=== PATIENT | female | born 1970 | race Caucasian/White ===

== ENCOUNTER 2020-09-12 19:08 | Inpatient (IN) | payer OTHER, SELFPAY ==
[~2020-09-12] VITALS: Ht 167.6 cm; Wt 72.6 kg
[2020-09-12] MEDS: NACL 0.9% 1,000 ML IV SCH (01:00)
[2020-09-12 19:22] VITALS: BP 143/78
--- NOTE | 2020-09-12 19:30 | NUR ---
biba to bed 11.
--- NOTE | 2020-09-12 19:58 | NUR ---
Dr. Bear made aware of pt changes in mentation.
--- NOTE | 2020-09-12 20:00 | NUR ---
received pt from EMS and placed to bed 11. pt connected to cardiac monitoring and pulse ox. placed for comfort in high fowlers position. a/o x 3, gcs 14. pt is a 50 year old female with hx of cerebellar ataxia, DM , HTN coming in for anxiety attack that happened 1819. upon assessment of pt, observed right facial droop and right side neglect. BUE rough rounder machine symmetrical 5/5. BLE no effort against gravity. presents garbled speech. BL limb ataxia. LKW 1819. per daughter, stated that pt usually has slight droop due to cerebella ataxia. daughter states that pt was eating a sandwich acting normally when all of a sudden she suddenly started panicking and slurring her speech.
--- NOTE | 2020-09-12 20:12 | NUR ---
code stroke called
--- NOTE | 2020-09-12 20:20 | NUR ---
NIH of 18 with fail dysphagia screen
[2020-09-12 20:27] LABS: BASOPHILS # (AUTO) 0.1 K/uL (0.00-0.22); BASOPHILS % (AUTO) 0.6 % (0.0-2.0); EOSINOPHILS # (AUTO) 0.3 K/uL (0-0.4); EOSINOPHILS % (AUTO) 2.4 % (0.0-4.0); HEMATOCRIT 40.4 % (36-48); HEMOGLOBIN 13.4 g/dL (12.0-16.0); LYMPHOCYTES # (AUTO) 2.9 K/uL (2.5-16.5); LYMPHOCYTES % (AUTO) 21.6 % (20.5-51.1); MEAN CORPUSCULAR HEMOGLOBIN 30 pg (27-31); MEAN CORPUSCULAR HGB CONC 33 g/dL (33-37); MEAN CORPUSCULAR VOLUME 90.1 fL (80-94); MONOCYTES # (AUTO) 0.9 K/uL (0.8-1.0); MONOCYTES % (AUTO) 6.3 % (1.7-9.3); NEUTROPHILS # (AUTO) 9.4 K/uL (1.8-7.7); NEUTROPHILS % (AUTO) 69.1 % (42.2-75.2); PLATELET COUNT (AUTO) 177 K/uL (140-450); RED BLOOD CELL COUNT(AUTO) 4.48 MIL/uL (4.20-5.40); RED CELL DISTRIBUTION WIDTH 12.6 % (11.6-13.7); WHITE BLOOD COUNT (AUTO) 13.6 K/uL (4.8-10.8)
[2020-09-12 20:35] LABS: PROTHROMBIN TIME 9.4 secs (10.8-13.4)
[2020-09-12 20:37] LABS: CARBON DIOXIDE 29.2 mmol/L (21-32); CREATININE 0.9 mg/dL (0.6-1.3); POTASSIUM 4.2 mmol/L (3.5-5.1); TOTAL BILIRUBIN 0.8 mg/dL (0.0-1.0)
--- NOTE | 2020-09-12 20:42 | NUR ---
Karishma medley in ED - 09/12/20 at 2055 by [facility] of 20 with fail dysphagia screen.
--- NOTE | 2020-09-12 20:50 | NUR ---
telepsych currently assessing pt from remote location.
[2020-09-12 21:18] LABS: ACETAMINOPHEN < 0.5 ug/ml (10-30); SALICYLATE < 2.8 mg/dL (2.8-20.0)
[2020-09-12 21:47] LABS: APPEARANCE,URINE CLEAR (CLEAR); BILIRUBIN,URINE NEGATIVE (NEGATIVE); BLOOD, URINE NEGATIVE (NEGATIVE); COLOR,URINE YELLOW (YELLOW); LEUKOCYTE ESTERASE ,URINE TRACE (NEGATIVE); NITRITE, URINE NEGATIVE (NEGATIVE); PH,URINE 5.5 (5.0-9.0); UGLUCOSE 1+ (NEGATIVE)
--- NOTE | 2020-09-12 22:02 | NUR ---
covid swab collected and sent to lab.
[2020-09-12 22:04] LABS: BARBITURATE, URINE NEGATIVE ng/ml (NEG <=200); BENZODIAZEPINE, URINE NEGATIVE ng/mL (NEG <=200); CANNABINOID, URINE POSITIVE ng/mL (NEG <=50); COCAINE, URINE NEGATIVE ng/mL (NEG <=300); OPIATE, URINE NEGATIVE ng/mL (NEG <=2000); PHENCYCLIDINE SCREEN,URINE NEGATIVE ng/mL (NEG <=25)
[2020-09-12 22:11] LABS: HYALINE CASTS, URINE 0-2 /LPF (None Seen); RBC,URINE 0-5 /HPF (0-5); WBC,URINE 0-5 /HPF (0-5)
[2020-09-12] MEDS ORDERED: ESCI5TAB PO (22:16)
[2020-09-12] MEDS ORDERED: IBUP-2213 PO (22:16)
[2020-09-12] MEDS ORDERED: AMLO2.5T PO (22:16)
[2020-09-12] MEDS ORDERED: FURO-572 PO (22:16)
[2020-09-12] MEDS ORDERED: METO25TE71 PO (22:16)
[2020-09-12] MEDS ORDERED: METF750T PO (22:16)
[2020-09-12] MEDS ORDERED: POTA10TE30 PO (22:16)
[2020-09-12] MEDS ORDERED: LISI5TAB18 PO (22:16)
[2020-09-12] MEDS ORDERED: DOCUSATE SODIUM 100 MG GELCAP PO PRN (22:25)
[2020-09-12] MEDS ORDERED: HYDROcodone/APAP 5/325 MG 1 TAB TAB PO PRN (22:25)
[2020-09-12] MEDS ORDERED: POTASSIUM CHLORIDE 40 MEQ, LIDOCAINE MPF 1% 25 MG in NACL 0.9% 250 ML IV PRN (22:25)
[2020-09-12] MEDS ORDERED: ONDANSETRON 4 MG/2 ML VIAL IM/IVP PRN (22:25)
[2020-09-12] MEDS ORDERED: MORPHINE SULFATE 2 MG/ML SYR IVP PRN (22:25)
[2020-09-12] MEDS ORDERED: SODIUM PHOS / POTASSIUM PHOS 1 PKT PDR PO PRN (22:25)
[2020-09-12] MEDS ORDERED: MAG SULF 2000 MG/WATER PREMIX 50 ML IV PRN (22:25)
[2020-09-12] MEDS ORDERED: ACETAMINOPHEN 325 MG TAB PO PRN (22:25)
[2020-09-12] MEDS ORDERED: DEXTROSE 50% 50 ML SYR IVP PRN (22:35)
--- NOTE | 2020-09-12 23:00 | NUR ---
transfer of care report given to Rasheeda CLAIRE from [facility]. pt will be admitted under the care of Dr. Randall. currently a/o x 2-3 gcs 14. placed in gown. IV site patent and flushable. belonging and meds are going to be sent with pt.
[2020-09-12 23:03] LABS: MAGNESIUM 1.6 mg/dL (1.8-2.4); PHOSPHORUS 5.3 mg/dL (2.5-4.9); THYROID STIMULATING HORMONE 1.13 uIU/mL (0.34-3.74)
--- NOTE | 2020-09-12 23:45 | NUR ---
ADMITTED A FEMALE PT FROM HOME ACCOMPANIED BY DAUGHTER WITH CC: ANXIETY, RIGHT FACIAL DROOP, SLURRED SPEECH. DX: ACUTE ENCEPHALOPATHY. HX: CEREBELLAR ATAXIA, HTN, DM. NKA, FULL CODE. AOX4 NO DISTRESS, RESPIRATION REGULAR NON LABORED. BOWEL SOUNDS PRESENT IN ALL 4 QUADRANT. MRSA SCREENING DONE. DENIES PAIN . WILL CONTINUE TO MONITOR.
[2020-09-13] MEDS: PANTOPRAZOLE 40 MG INJ VIAL IVP SCH ×2 (01:05→08:51)
[2020-09-13] MEDS ORDERED: cefTRIAXone 1,000 MG VIAL ONE (01:18)
[2020-09-13 04:00] VITALS: BP 104/63
--- NOTE | 2020-09-13 06:03 | NUR ---
PATIENT C/O URINARY HESITANCY AND URGENCY. UNABLE TO URINATE IN BEDPAN. STRAIGHT CATHETER ADMINISTERED WITH 850 ML OF CLEAR, YELLOW URINE OUT. PATIENT VERBALIZED RELIEF AND TOLERATED WELL.
[2020-09-13 06:09] LABS: CREATININE 0.8 mg/dL (0.6-1.3)
[2020-09-13 06:52] LABS: BASOPHILS % (AUTO) 0.4 % (0.0-2.0); EOSINOPHILS # (AUTO) 0.1 K/uL (0-0.4); EOSINOPHILS % (AUTO) 1.2 % (0.0-4.0); HEMATOCRIT 32.5 % (36-48); HEMOGLOBIN 11.2 g/dL (12.0-16.0); LYMPHOCYTES # (AUTO) 2.3 K/uL (2.5-16.5); LYMPHOCYTES % (AUTO) 22.7 % (20.5-51.1); MEAN CORPUSCULAR HEMOGLOBIN 31 pg (27-31); MEAN CORPUSCULAR HGB CONC 35 g/dL (33-37); MONOCYTES # (AUTO) 0.7 K/uL (0.8-1.0); MONOCYTES % (AUTO) 6.3 % (1.7-9.3); NEUTROPHILS # (AUTO) 7.2 K/uL (1.8-7.7); NEUTROPHILS % (AUTO) 69.4 % (42.2-75.2); PLATELET COUNT (AUTO) 150 K/uL (140-450); RED BLOOD CELL COUNT(AUTO) 3.65 MIL/uL (4.20-5.40); RED CELL DISTRIBUTION WIDTH 12.6 % (11.6-13.7); WHITE BLOOD COUNT (AUTO) 10.3 K/uL (4.8-10.8)
[2020-09-13] MEDS: INSULIN LISPRO SLIDING SCALE 100 UNITS/ML VIAL SUBQ PRN ×3 (06:58→20:11)
[2020-09-13] MEDS: BLOOD GLUCOSE MONITORING 1 DEV DEV FS SCH ×4 (07:02→20:10)
--- NOTE | 2020-09-13 07:30 | NUR ---
ENDORSED TO THE MORNING SHIFT RN FOR CONTINUITY OF CARE IN STABLE CONDITION.
--- NOTE | 2020-09-13 07:35 | NUR ---
RECEIVED PT FROM SENIOR TELECOMMUNICATIONS TECHNICIAN NURSEAVA, PT IS AWAKE AND LYING ON THE BED WITH SIDE RAILS UP AND CALL LIGHT WITHIN REACH, IV LINE NOTED ON THE RFA G. 20 WITH IVF NS INFUSING AT 60ML/HR, INTACT, PT IS ON RA AND NO SIGN OF DISTRESS NOTED, PT DENIES PAIN BUT SPEECH IS SLURRED, NO FACIAL DROOP NOTED. WILL MONITOR PT.
--- NOTE | 2020-09-13 07:50 | NUR ---
PATIENT HAS BEEN SCREENED AND CATEGORIZED LOW NUTRITION RISK. PATIENT WILL BE SEEN WITHIN 7 DAYS OF ADMISSION. 09/18/[address]
[2020-09-13 08:00] VITALS: BP 126/80
[2020-09-13] MEDS: ESCITALOPRAM 20 MG TAB PO SCH (08:51)
[2020-09-13] MEDS: lisinopriL 5 MG TAB PO SCH (08:55)
[2020-09-13] MEDS: amLODIPine 5 MG TAB PO SCH (08:55)
[2020-09-13] MEDS: METOPROLOL SUCCINATE 50 MG TABER PO SCH (08:56)
--- NOTE | 2020-09-13 08:56 | NUR ---
PT WAS GIVEN THE SCHEDULED AM MEDICATION NOW, AMLODIPINE WAS HELD PER MD ORDER, MEDICATIONS WAS OPENED ALREADY AND WASTED, BP IS126/80, PULSE IS 98 MANUALLY
--- NOTE | 2020-09-13 11:36 | NUR ---
BLOOD GLUCOSE CHECK DONE AND IS 131, WILL MONITOR PT.
[2020-09-13 12:00] VITALS: BP 113/65
--- NOTE | 2020-09-13 14:28 | NUR ---
CALLED DR. RIDDLE AND REPORTED ABOUT THE VOIDING OF THE PT AND THE STRAIGHT CATHETERIZATION DONE TO PT AT 0936H AND EMPTIED 900ML IN THE BLADDER, AND AT ABOUT 1340 PT WAS ABLE TO VOID A 200ML AMOUNT OF PEE ON THE BEDPAN, DR. RIDDLE MADE A TELEPHONE ORDER TO INSERT COOLEY CATHETER TO THE PT
[2020-09-13 16:00] VITALS: BP 105/54
[2020-09-13] MEDS: NACL 0.9% 1,000 ML IV SCH (16:31)
--- NOTE | 2020-09-13 16:31 | NUR ---
PT'S BLOOD GLUCOSE WAS CHECKED AND IS 190 AND WILL GIVE INSULIN COVERAGE.
--- NOTE | 2020-09-13 16:53 | NUR ---
PT WAS GIVEN INSULIN 2 UNITS ON THE RIGHT DELTOID FOR BLOOD GLUCOSE OF 190.
--- NOTE | 2020-09-13 18:55 | NUR ---
SWALLOW EVALUATION IS BEING DONE TO PT NOW.
--- NOTE | 2020-09-13 19:06 | NUR ---
pt was seen for dysphagia. pt was able to safely swallow regular deit with thin liquid without s/s of aspiration. recommendation regular diet with thin liquid.
--- NOTE | 2020-09-13 19:10 | NUR ---
RECEIVED PATIENT FROM AM SHIFT NURSE FOR CONTINUITY OF CARE. ALERT AND ABLE TO MAKE NEEDS KNOWN. RESPIRATIONS EVEN, UNLABORED. NO S/S RESPIRATORY DISTRESS. S1/S2 AUSCULTATED. TELE MONITORING. SKIN WARM, DRY. IV SITE TO LEFT FOREARM 22G PATENT/INTACT, INFUSING FLUIDS WELL. NO C/O PAIN. NO S/S ACUTE DISTRESS. ABDOMEN SOFT, NONTENDER, NONDISTENDED. BOWEL SOUNDS ACTIVE X4 QUADRANTS. COOLEY CATHETER PATENT WITH CLEAR YELLOW URINE DRAINING TO GRAVITY. PLAN OF CARE DISCUSSED. CALL LIGHT WITHIN REACH AT ALL TIMES. SAFETY PRECAUTIONS IN PLACE.
--- NOTE | 2020-09-13 19:10 | NUR ---
ENDORSED PT TO TRUCK HEADLIGHT ASSEMBLER NURSE FOR CONTINUITY OF CARE.
[2020-09-13 20:00] VITALS: BP 112/79
--- NOTE | 2020-09-13 21:00 | NUR ---
DUE MEDS GIVEN. PATIENT RESTING COMFORTABLY IN BED. NO S/S RESPIRATORY DISTRESS. NO C/O PAIN. NO S/S ACUTE DISTRESS. CALL LIGHT WITHIN REACH AT ALL TIMES. SAFETY PRECAUTIONS IN PLACE.
--- NOTE | 2020-09-13 23:03 | NUR ---
PATIENT IS ASLEEP. NO S/S RESPIRATORY DISTRESS. NO S/S ACUTE DISTRESS. CALL LIGHT WITHIN REACH AT ALL TIMES. SAFETY PRECAUTIONS IN PLACE.
[2020-09-14] VITALS: BP 108/71
--- NOTE | 2020-09-14 01:00 | NUR ---
ASSISTED PATIENT TO TURN AND REPOSITION SELF IN BED. NO S/S RESPIRATORY DISTRESS. NO C/O PAIN. NO S/S ACUTE DISTRESS. CALL LIGHT WITHIN REACH. SAFETY PRECAUTIONS IN PLACE.
--- NOTE | 2020-09-14 03:29 | NUR ---
INCONTINENT CARE RENDERED. NO S/S RESPIRATORY DISTRESS. NO C/O PAIN. NO S/S ACUTE DISTRESS. CALL LIGHT WITHIN REACH. SAFETY PRECAUTIONS IN PLACE.
[2020-09-14 04:00] VITALS: BP 106/82
--- NOTE | 2020-09-14 04:29 | NUR ---
MADE ROUNDS. PATIENT IS ASLEEP. NO S/S RESPIRATORY DISTRESS. NO S/S ACUTE DISTRESS. CALL LIGHT WITHIN REACH. SAFETY PRECAUTIONS IN PLACE.
--- NOTE | 2020-09-14 05:01 | NUR ---
PATIENT ASLEEP. NO S/S RESPIRATORY DISTRESS. NO S/S ACUTE DISTRESS. CALL LIGHT WITHIN REACH. SAFETY PRECAUTIONS IN PLACE.
[2020-09-14 05:11] LABS: BASOPHILS % (AUTO) 0.3 % (0.0-2.0); EOSINOPHILS # (AUTO) 0.2 K/uL (0-0.4); EOSINOPHILS % (AUTO) 2.7 % (0.0-4.0); HEMOGLOBIN 12.4 g/dL (12.0-16.0); LYMPHOCYTES # (AUTO) 2.3 K/uL (2.5-16.5); LYMPHOCYTES % (AUTO) 30.1 % (20.5-51.1); MEAN CORPUSCULAR HEMOGLOBIN 31 pg (27-31); MEAN CORPUSCULAR HGB CONC 34 g/dL (33-37); MEAN CORPUSCULAR VOLUME 91.4 fL (80-94); MONOCYTES # (AUTO) 0.5 K/uL (0.8-1.0); NEUTROPHILS # (AUTO) 4.6 K/uL (1.8-7.7); NEUTROPHILS % (AUTO) 59.9 % (42.2-75.2); PLATELET COUNT (AUTO) 160 K/uL (140-450); RED BLOOD CELL COUNT(AUTO) 4.05 MIL/uL (4.20-5.40); RED CELL DISTRIBUTION WIDTH 12.8 % (11.6-13.7); WHITE BLOOD COUNT (AUTO) 7.7 K/uL (4.8-10.8)
[2020-09-14 05:46] LABS: ANION GAP 11.4 (8-16); CARBON DIOXIDE 26.5 mmol/L (21-32); CREATININE 0.6 mg/dL (0.6-1.3); POTASSIUM 3.9 mmol/L (3.5-5.1)
[2020-09-14 05:48] LABS: PHOSPHORUS 3.9 mg/dL (2.5-4.9)
[2020-09-14] MEDS: BLOOD GLUCOSE MONITORING 1 DEV DEV FS SCH ×4 (06:42→20:25)
[2020-09-14] MEDS: NACL 0.9% 1,000 ML IV SCH (06:54)
--- NOTE | 2020-09-14 07:30 | NUR ---
RECEIVED PT FROM CAMPUS SECURITY OFFICER NURSEAVA, PT IS AWAKE AND LYING ON THE BED WITH SIDE RAILS UP AND CALL LIGHT WITHIN REACH, IV LINE NOTED ON THE FR 22G WITH IVF NS INFUSING AT 60ML/HR, INTACT, PT IS ON RA AND NO SIGN OF DISTRESS NOTED, PT DENIES PAIN BUT SPEECH IS SLURRED, NO FACIAL DROOP NOTED. WILL MONITOR PT.
[2020-09-14 08:00] VITALS: BP 156/82
[2020-09-14] MEDS: METOPROLOL SUCCINATE 50 MG TABER PO SCH (09:40)
[2020-09-14] MEDS: lisinopriL 5 MG TAB PO SCH (09:41)
[2020-09-14] MEDS: ESCITALOPRAM 20 MG TAB PO SCH (09:42)
[2020-09-14] MEDS: amLODIPine 5 MG TAB PO SCH (09:43)
[2020-09-14] MEDS: PANTOPRAZOLE 40 MG INJ VIAL IVP SCH (09:44)
--- NOTE | 2020-09-14 09:45 | NUR ---
PT WA GIVEN THE SCHEDULED AM MEDIATIONS NOW, PARAMETERS CHECKED, BP IS 147/69, PULSE IS 97, TOLERATED, ASPIRATION PRECAUTION ENSURED. WILL CONTINUE TO MONITOR PT.
[2020-09-14] MEDS: INSULIN LISPRO SLIDING SCALE 100 UNITS/ML VIAL SUBQ PRN ×3 (11:25→20:28)
[2020-09-14 12:00] VITALS: BP 121/75
--- NOTE | 2020-09-14 12:24 | NUR ---
DR. RIDDLE MADE A TELEPHONE ORDER TO REMOVE COOLEY CATHETER AT AROUND 1500 AND ASSESS PT IF SHE CAN VOID FREELY BY HERSELF.
[2020-09-14 16:00] VITALS: BP 139/80
--- NOTE | 2020-09-14 16:26 | NUR ---
INSULIN 2 UNITS ADMINISTERED FOR BLOOD GLUCOSE 159.PATIENT DENIED PAIN AT THIS TIME . BED IN LOWER POSITION . CALL LIGHT WITHIN REACH.
--- NOTE | 2020-09-14 16:30 | NUR ---
COOLEY CATHETER D/C PER MD ORDERED COLLECTED 500 ML CLEAR URINE. PATIENT TOLERATED WELL.
--- NOTE | 2020-09-14 19:08 | NUR ---
ENDORSED PT TO PROCESS HELPER NURSE YANDEL FOR CONTINUITY OF CARE, PT TALKING TO FAMILY MEMBERS ON HER CP BUT FAMILY IS OUTSIDE THE WINDOW.
--- NOTE | 2020-09-14 19:09 | NUR ---
RECD. RESTING IN BED, AWAKE, A/OX4. RESPIRATION EVEN AND UNLABORED. IV OF NS AT 60 ML/HR INFUSING RIGHT FOREARM G22. SAFETY MEASURES ENFORCED. BED IN THE LOWEST POSITION, SIDE RAILS UP, CALL LIGHT NEAR. MEDICATIONS AND CARE FOR THE SHIFT DISCUSSED WITH PATIENT, VERBALIZED UNDERSTANDING. DENIES PAIN 0/10.
[2020-09-14 20:00] VITALS: BP 142/80
--- NOTE | 2020-09-14 20:00 | NUR ---
Patient's Plan of Care was discussed and reviewed with CLAY PIGEON SETTER: YANDEL APEZ
--- NOTE | 2020-09-14 20:25 | NUR ---
WATCHING TV. BS CHECKED - 213. HUMALOG GIVEN SUB-Q PER SLIDING SCALE COVERAGE. SNACK GIVEN FOR THE NIGHT.
--- NOTE | 2020-09-14 20:30 | NUR ---
ENCOURAGED TO DRINK MORE FLUIDS, WATER AND JUICES AT THE BEDSIDE TABLE. INSTRUCTED TO CALL NURSE FOR ASSISTANCE WHEN SHE WANTS TO VOID. VERBALIZED UNDERSTANDING.
--- NOTE | 2020-09-14 21:40 | NUR ---
ADMINISTERED SCHEDULED MEDICATION. EDUCATION PROVIDED. NO DISTRESS NOTED. CALL LIGHT WITHIN REACH. WILL CONTINUE TO MONITOR
--- NOTE | 2020-09-14 23:00 | NUR ---
SLEEPING COMFORTABLY IN BED.
[2020-09-15] VITALS: BP 106/76
[2020-09-15] MEDS: NACL 0.9% 1,000 ML IV SCH ×3 (00:25→19:10)
--- NOTE | 2020-09-15 01:15 | NUR ---
ASSISTED TO GET OUT OF BED TO VOID IN THE BR. AMBULATED USING HER WALKER. VOIDED MODERATE AMOUNT OF CLEAR YELLOW URINE.
[2020-09-15 04:00] VITALS: BP 124/77
--- NOTE | 2020-09-15 04:00 | NUR ---
SR ON TELE MONITORING, HR - 78. VS STABLE. NO COMPLAINT OF PAIN 0/10.
--- NOTE | 2020-09-15 05:35 | NUR ---
BS CHECKED - 136. NO INSULIN COVERAGE.
[2020-09-15] MEDS: BLOOD GLUCOSE MONITORING 1 DEV DEV FS SCH ×4 (05:45→19:59)
[2020-09-15 06:05] LABS: ANION GAP 11.7 (8-16); CARBON DIOXIDE 28.6 mmol/L (21-32); CREATININE 0.8 mg/dL (0.6-1.3); POTASSIUM 4.3 mmol/L (3.5-5.1)
[2020-09-15 06:13] LABS: BASOPHILS % (AUTO) 0.5 % (0.0-2.0); EOSINOPHILS # (AUTO) 0.3 K/uL (0-0.4); EOSINOPHILS % (AUTO) 3.7 % (0.0-4.0); HEMATOCRIT 34.9 % (36-48); HEMOGLOBIN 11.9 g/dL (12.0-16.0); LYMPHOCYTES # (AUTO) 2.5 K/uL (2.5-16.5); LYMPHOCYTES % (AUTO) 30.2 % (20.5-51.1); MEAN CORPUSCULAR HEMOGLOBIN 31 pg (27-31); MEAN CORPUSCULAR HGB CONC 34 g/dL (33-37); MONOCYTES # (AUTO) 0.6 K/uL (0.8-1.0); MONOCYTES % (AUTO) 7.1 % (1.7-9.3); NEUTROPHILS # (AUTO) 4.9 K/uL (1.8-7.7); NEUTROPHILS % (AUTO) 58.5 % (42.2-75.2); PLATELET COUNT (AUTO) 176 K/uL (140-450); RED BLOOD CELL COUNT(AUTO) 3.83 MIL/uL (4.20-5.40); RED CELL DISTRIBUTION WIDTH 12.8 % (11.6-13.7); WHITE BLOOD COUNT (AUTO) 8.3 K/uL (4.8-10.8)
--- NOTE | 2020-09-15 06:30 | NUR ---
ABLE TO VOID FREELY THREE TIMES IN THE BR, CLEAR YELLOW URINE.
--- NOTE | 2020-09-15 07:13 | NUR ---
RECEIVED REPORT FROM ELEVATOR EXAMINER AND ADJUSTER RN FOR CONTINUITY OF CARE. PATIENT RESTING IN BED IN SUPINE POSITION. AAOX4. RESPIRATORY EVEN UNLABORED. SKIN INTACT, WARM AND DRY. IV TO RIGHT FOREARM 22G INFUSING NS@ 60ML/HR. WALKER AT BEDSIDE, FALL RISK. PENDING PT EVAL. SAFETY MEASURES IN PLACE, WILL CONTINUE TO MONITOR.
[2020-09-15 08:00] VITALS: BP 125/64
[2020-09-15] MEDS: PANTOPRAZOLE 40 MG INJ VIAL IVP SCH (09:20)
[2020-09-15] MEDS: amLODIPine 5 MG TAB PO SCH (09:21)
[2020-09-15] MEDS: lisinopriL 5 MG TAB PO SCH (09:22)
[2020-09-15] MEDS: METOPROLOL SUCCINATE 50 MG TABER PO SCH (09:22)
[2020-09-15] MEDS: ESCITALOPRAM 20 MG TAB PO SCH (09:23)
--- NOTE | 2020-09-15 09:23 | NUR ---
SCHEDULED MEDICATIONS GIVEN, EDUCATION PROVIDED. PATIENT DENIES PAIN OR DISCOMFORT AT THIS TIME. IV INFUSING ORDERED. CALL LIGHT WITHIN REACH, WILL CONTINUE TO MONITOR.
[2020-09-15] MEDS: INSULIN LISPRO SLIDING SCALE 100 UNITS/ML VIAL SUBQ PRN ×3 (11:17→20:02)
--- NOTE | 2020-09-15 11:17 | NUR ---
2 UNITS OF HUMALOG GIVEN FOR BS LEVEL 183, EDUCATION PROVIDED REGARDING THE DIABETIC DIET AND MANAGEMENT. SAFETY MEASURES IN PLACE, WILL CONTINUE TO MONITOR.
[2020-09-15 12:00] VITALS: BP 108/69
--- NOTE | 2020-09-15 13:12 | NUR ---
PATIENT RESTING IN BED COMFORTABLY, NO ACUTE DISTRESS NOTED AT THIS TIME. WILL CONTINUE TO MONITOR.
[2020-09-15 16:00] VITALS: BP 123/71
--- NOTE | 2020-09-15 16:38 | NUR ---
2 UNITS OF HUMALOG GIVEN FOR BS LEVEL 192. PATIENT RESTING IN BED COMPLAINT OF BODY SORE. INFORMED PATIENT TO TURN FROM SIDE TO SIDE, PATIENT IS ABLE TO PERFORM BY HERSELF. PATIENT STATED THAT SHE DOES NOT KNOW IF SHE NEEDS PAIN MEDICATIONS SUCH TYLENOL AT THIS TIME. INFORMED PATIENT REGARDING RELAXATION TECHNIQUE SUCH STRETCHING. WILL ADMINISTER PAIN MEDICATION IF PATIENT REQUEST. WILL CONTINUE TO MONITOR.
--- NOTE | 2020-09-15 19:15 | NUR ---
ENDORSED PATIENT TO TAPING MACHINE OPERATOR RN FOR CONTINUITY OF CARE. PATIENT IN STABLE CONDITION.
--- NOTE | 2020-09-15 19:16 | NUR ---
RECEIVED BEDSIDE REPORT FROM DAY RN. PT IS AAOX4. RESPIRATIONS ARE EQUAL AND UNLABORED ON ROOM AIR. LUNG SOUNDS ARE CLEAR. PT WITH MUMBLING SLURRED SPEECH. PT USES WALKER. IV ON R FA IVF INFUSING PER ORDERS. SKIN IS INTACT, DX A ENCEPHALOPATHY. PT TODAY WITH RECOM. HOME HEALTH VS SNF FOR PT. PT UTI ON ROCEPHIN. POC DISCUSSED WITH PT. PT VERBALIZED UNDERSTANDING. ALL NEEDS MET. CALL LIGHT IS WITHIN REACH. Addendum: 09/15/20 at 2213 by Laury Charles RN PT HAS L FACIAL DROOP. AND SLURRED SPEECH. HEAD CT WAS NEGATIVE. ON HEP BID. WILL CONTINUE TO MONITOR
[2020-09-15 20:00] VITALS: BP 129/74
--- NOTE | 2020-09-15 20:02 | NUR ---
VITAL SIGNS ARE STABLE. BLOOD SUGAR 170 ADMIN INSULIN PER SLIDING SCALE. MURIEL MEDICATIONS GIVEN. MED EDUCATION GIVEN. PT ON PHONE WITH BROTHER CARL. SAFETY MEASURES ARE IN PLACE. WILL CONTINUE TO MONITOR.
--- NOTE | 2020-09-15 22:05 | NUR ---
ROUNDS MADE. PT IS ON PHONE WITH DAUGHTER NASIR. ALL NEEDS MET. CALL LIGHT IS WITHIN REACH.
[2020-09-16] VITALS: BP 94/46
--- NOTE | 2020-09-16 00:17 | NUR ---
VSS. PT IS RESTING IN BED WATCHING TV NO S/S OF DISTRESS. CALL LIGHT IS WITHIN REACH.
--- NOTE | 2020-09-16 02:05 | NUR ---
ROUNDS MADE. PT APPEARS TO BE ASLEEP. CHEST RISE AND FALL NOTED. WILL CONTINUE TO MONITOR.
[2020-09-16 04:00] VITALS: BP 113/76
--- NOTE | 2020-09-16 04:00 | NUR ---
VITAL SIGNS ARE WITHIN NORMAL LIMITS. ALL SAFETY MEASURES ARE IN PLACE. WILL CONTINUE TO MONITOR.
[2020-09-16 05:46] LABS: BASOPHILS % (AUTO) 0.5 % (0.0-2.0); EOSINOPHILS # (AUTO) 0.3 K/uL (0-0.4); EOSINOPHILS % (AUTO) 3.2 % (0.0-4.0); HEMATOCRIT 33.5 % (36-48); HEMOGLOBIN 11.5 g/dL (12.0-16.0); LYMPHOCYTES # (AUTO) 2.5 K/uL (2.5-16.5); LYMPHOCYTES % (AUTO) 28.9 % (20.5-51.1); MEAN CORPUSCULAR HEMOGLOBIN 31 pg (27-31); MEAN CORPUSCULAR HGB CONC 34 g/dL (33-37); MEAN CORPUSCULAR VOLUME 89.7 fL (80-94); MONOCYTES # (AUTO) 0.6 K/uL (0.8-1.0); MONOCYTES % (AUTO) 7.3 % (1.7-9.3); NEUTROPHILS # (AUTO) 5.1 K/uL (1.8-7.7); NEUTROPHILS % (AUTO) 60.1 % (42.2-75.2); PLATELET COUNT (AUTO) 160 K/uL (140-450); RED BLOOD CELL COUNT(AUTO) 3.73 MIL/uL (4.20-5.40); RED CELL DISTRIBUTION WIDTH 12.8 % (11.6-13.7); WHITE BLOOD COUNT (AUTO) 8.6 K/uL (4.8-10.8)
[2020-09-16 05:47] LABS: ANION GAP 9.7 (8-16); CARBON DIOXIDE 29.2 mmol/L (21-32); CREATININE 0.7 mg/dL (0.6-1.3); POTASSIUM 3.9 mmol/L (3.5-5.1)
[2020-09-16] MEDS: BLOOD GLUCOSE MONITORING 1 DEV DEV FS SCH (06:18)
--- NOTE | 2020-09-16 07:27 | NUR ---
GAVE BEDSIDE REPORT TO DAY RN. PT ENDORSED IN STABLE CONDITION.
--- NOTE | 2020-09-16 07:28 | NUR ---
RECEIVED PATIENT FROM NIGHT NURSE. PATIENT IN BED SLEEPING, CHEST NOTED RISING. NO NOTED DISTRESS. RFA 22G INFUSING NS 60ML/HR. HOB ELEVATED, BED IN LOW POSITION. CALL LIGHT WITHIN REACH. WILL CONTINUE TO MONITOR.
[2020-09-16 08:00] VITALS: BP 144/98
[2020-09-16] MEDS: lisinopriL 5 MG TAB PO SCH (08:23)
[2020-09-16] MEDS: PANTOPRAZOLE 40 MG INJ VIAL IVP SCH (08:23)
[2020-09-16] MEDS: amLODIPine 5 MG TAB PO SCH (08:23)
[2020-09-16] MEDS: METOPROLOL SUCCINATE 50 MG TABER PO SCH (08:23)
[2020-09-16] MEDS: ESCITALOPRAM 20 MG TAB PO SCH (08:23)
--- NOTE | 2020-09-16 08:32 | NUR ---
PATIENT SITTING UP IN BED AWAKE, ALERT, ORIENTED X3. PT EATING BREAKFAST. MORNING ROUTINE MEDICATIONS GIVEN. PATIENT TOLERATED WELL. NO NOTED DISTRESS AT THIS TIME. RESP EVEN AND UNLABORED. PATIENT WAS HELPED TO USE THE BEDSIDE COMMODE. ATAXIA NOTED TO EXTREMITIES. WALKER AT BEDSIDE. PATIENT ENCOURAGED TO USE CALL LIGHT NEEDED FOR ASSIST. PATIENT VERBALIZED UNDERSTANDING. RFA 22G INFUSING WELL. NO EDEMA NOTED. PATIENT ABLE TO MAKE NEEDS KNOWN. CALL LIGHT WITHIN REACH. WILL CONTINUE TO MONITOR. Addendum: 09/16/20 at 1022 by Alfredo Sosa RN PATIENT NOTED WITH JERKY MOVEMENTS AND SPEECH IS SLURRED WITH PRESSURE. PATIENT ABLE TO MAKE NEEDS KNOWN.
[2020-09-16] MEDS ORDERED: METF1000 PO (08:45)
[2020-09-16] MEDS: NACL 0.9% 1,000 ML IV SCH (10:00)
--- NOTE | 2020-09-16 10:07 | NUR ---
PATIENT IN BED C/O BACK PAIN, GIVEN MORPHINE ORDERED. PATIENT ENCOURAGED TO USE ALL LIGHT IF NEEDED TO USE BEDSIDE COMMODE. PATIENT VERBALIZED UNDERSTANDING. WILL CONTINUE TO MONITOR.
[2020-09-16 10:48] VITALS: BP 144/98
--- NOTE | 2020-09-16 10:59 | NUR ---
ASAD MIRANDA: PATIENTS DAUGHTER NASIR CALLED EXPRESSING THAT THEY DO NOT WANT PATIENT TO GO TO SNF. DR. CARDONA IS AWARE. SPOKE TO PATIENTS DAUGHTER SHE IS OKAY FOR US TO ARRANGE HOME HEALTH AND SHE DOES NOT HAVE A PREFERENCE. WILL FAXED TO CONTRACTED HOME HEALTH AGENCI[facility]. Addendum: 09/16/20 at 1141 by Gina Richmond CM ASAD MIRANDA: FAXED TO [facility] [phone]. FOLLOWED UP WITH MAGDI IN INTAKE. SHE STATED TO CALL BACK IN AN HOUR BECAUSE IT HAS NOT YET BEEN IN PUT INTO THE SYSTEM.
--- NOTE | 2020-09-16 11:55 | NUR ---
PATIENT DISCHARGED HOME WITH DAUGHTER. DISCHARGE INSTRUCTIONS PROVIDED, PATIENT VERBALIZED UNDERSTANDING. FLU VACC UP TO DATE. PATIENT LEFT IN STABLE CONDITION.
== END 2020-09-16 11:47 | disposition home health service (06) | DRG 871 ==
LOC: MED 19:08 → UNDOADMIN 22:01 → MTU 22:01
PROVIDERS: ADMIT Hospitalist; ATTEND Hospitalist
DX: A41.9 Sepsis, unspecified organism (principal); G93.41 Metabolic encephalopathy; N39.0 Urinary tract infection, site not specified; G11.9 Hereditary ataxia, unspecified; E87.2 Acidosis; E87.1 Hypo-osmolality and hyponatremia; G90.9 Disorder of the autonomic nervous system, unspecified; Z20.822 Contact with and (suspected) exposure to COVID-19; E11.9 Type 2 diabetes mellitus without complications; I10 Essential (primary) hypertension; R13.10 Dysphagia, unspecified; E83.42 Hypomagnesemia; F12.90 Cannabis use, unspecified, uncomplicated; Z79.84 Long term (current) use of oral hypoglycemic drugs; Z79.899 Other long term (current) drug therapy; Z71.51 Drug abuse counseling and surveillance of drug abuser
CPT/HCPCS: 36415; 70450; 71045; 80048; 80053; 80305; 81001; 82140; 82948; 83036; 83605; 83735; 83880; 84100; 84443; 84484; 85025; 85610; 85730; 86886; 86900; 86901; 87081; 87086; 92610; 92700; 93005; 97110; 97112; 97116; 97163-GP; 97530; 99291; C1758; C9113; G0480; G0482; J0696; J1644; J2270; J3475; J7060